=== PATIENT | male | born 1940 | race Caucasian/White ===

== ENCOUNTER 2017-06-05 10:57 | Emergency (ER) | payer OTHER, MEDICARE ==
[2017-06-05] MEDS ORDERED: OXYCODONE-ACETAMINOPHEN 5-325 MG TABLET PO ONE (11:24)
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
[2017-06-05 11:54] LABS: ABSOLUTE EOSINOPHILS # (AUTO) 0.3 10^3/uL (0.0-0.6); ABSOLUTE LYMPHOCYTES (AUTO) 1.5 10^3/uL (0.5-4.7); ABSOLUTE MONOCYTES (AUTO) 0.7 10^3/uL (0.1-1.4); ABSOLUTE NEUT (AUTO) 4.8 10^3/uL (1.7-8.2); BASOPHILS % (AUTO) 0.6 % (0-2); EOSINOPHILS % (AUTO) 4.4 % (0-6); HEMATOCRIT 46.2 % (37.9-51.0); HEMOGLOBIN 15.6 g/dL (13.5-17.0); LYMPHOCYTES % (AUTO) 20.8 % (13-45); MEAN CORPUSCULAR HEMOGLOBIN 27.9 pg (27.0-33.4); MEAN CORPUSCULAR HGB CONC 33.7 g/dL (32.0-36.0); MEAN CORPUSCULAR VOLUME 83 fl (80-97); MONOCYTES % (AUTO) 9.1 % (3-13); PLATELET COUNT 173 10^3/uL (150-450); RED BLOOD COUNT 5.58 10^6/uL (4.35-5.55); RED CELL DISTRIBUTION WIDTH 15.2 % (11.5-14.0); SEGMENTED NEUTROPHILS % (AUTO) 65.1 % (42-78); TOTAL CELLS COUNTED % (AUTO) 100 %; WHITE BLOOD COUNT 7.3 10^3/uL (4.0-10.5)
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
[2017-06-05 12:16] LABS: ALANINE AMINOTRANSFERASE 35 U/L (21-72); ALBUMIN 3.9 g/dL (3.5-5.0); ALKALINE PHOSPHATASE 88 U/L (38-126); ANION GAP 14 (5-19); ASPARTATE AMINO TRANSFERASE 20 U/L (17-59); BILIRUBIN,DIRECT 0.3 mg/dL (0.0-0.4); BILIRUBIN,TOTAL 1.5 mg/dL (0.2-1.3); BLOOD UREA NITROGEN 29 mg/dL (7-20); CALCIUM 9.7 mg/dL (8.4-10.2); CARBON DIOXIDE 28 mmol/L (22-30); CHLORIDE 97 mmol/L (98-107); GLUCOSE 144 mg/dL (75-110); POTASSIUM 3.2 mmol/L (3.6-5.0); SODIUM 138.6 mmol/L (137-145); TOTAL PROTEIN 6.5 g/dL (6.3-8.2)
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
[2017-06-05 13:16] VITALS: BP 107/59
== END 2017-06-05 13:16 | disposition home or self-care (01) ==
LOC: ER 10:57
DX: S32.039A Unspecified fracture of third lumbar vertebra, initial encounter for closed fracture (principal); V49.9XXA Car occupant (driver) (passenger) injured in unspecified traffic accident, initial encounter; I25.10 Atherosclerotic heart disease of native coronary artery without angina pectoris; I25.2 Old myocardial infarction; I10 Essential (primary) hypertension; J44.9 Chronic obstructive pulmonary disease, unspecified; E11.9 Type 2 diabetes mellitus without complications; Z95.1 Presence of aortocoronary bypass graft; Z87.891 Personal history of nicotine dependence; Z93.0 Tracheostomy status
CPT/HCPCS: 36415; 70450; 71020; 74176; 80053; 85025; 99284

== ENCOUNTER 2020-03-18 19:26 | Emergency (ER) | payer MEDICARE ==
--- NOTE | 2020-03-18 20:01 | ER Document Report ---
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 Has had cough and some shortness of breath but states he always has these. Denies abdominal pain reports some constipation. PHYSICAL EXAMINATION: Alert and oriented x3. Left hemiparesis is noted. Lung sounds are decreased bilaterally. Slightly congested cough is noted the patient does have tracheostomy. Heartbeat is slightly irregular. I have greeted and performed a rapid initial assessment of this patient. A comprehensive ED assessment and evaluation of the patient, analysis of test results and completion of medical decision making process will be conducted by an additional ED providers. TRAVEL OUTSIDE OF THE [place] IN LAST 30 DAYS: No - Related Data Allergies/Adverse Reactions: No Known Allergies Allergy (Unverified 07/11/11 18:03) Past Medical History - Past Medical History Cardiac Medical History: Reports: Hx Coronary Artery Disease, Hx Heart Attack - 2 SEVERAL YEARS, Hx Hypercholesterolemia, Hx Hypertension Pulmonary Medical History: Reports: Hx COPD Denies: Hx Asthma, Hx Tuberculosis Neurological Medical History: Denies: Hx Cerebrovascular Accident, Hx Seizures Endocrine Medical History: Reports: Hx Diabetes Mellitus Type 2 Renal/ Medical History: Denies: Hx Peritoneal Dialysis GI Medical History: Denies: Hx Hepatitis, Hx Hiatal Hernia, Hx Ulcer Infectious Medical History: Denies: Hx Hepatitis Past Surgical History: Reports: Hx Cardiac Catheterization, Hx Cardiac Surgery, Hx Coronary Artery Bypass Graft - 4 vessel, Hx Herniorrhaphy - 3x, Hx Open Heart Surgery - BYPASS X4 2001. Denies: Hx Pacemaker - Immunizations Hx Diphtheria, Pertussis, Tetanus Vaccination: Yes Physical Exam - Vital signs Vitals: Temp Pulse Resp BP Pulse Ox 97.7 F 72 20 136/75 H 94 03/18/20 19:47 03/18/20 19:47 03/18/20 19:47 03/18/20 19:47 03/18/20 19:47 Course - Vital Signs Vital signs: Temp Pulse Resp BP Pulse Ox 97.7 F 72 20 136/75 H 94 03/18/20 19:47 03/18/20 19:47 03/18/20 19:47 03/18/20 19:47 03/18/20 19:47
--- NOTE | 2020-03-18 23:01 | RADIOLOGY REPORT (SQ) ---
XR CHEST 1 VIEW CLINICAL STATEMENT: cough COMPARISON: 06/05/2017 FINDINGS: Heart is moderately enlarged. Status post median sternotomy. Tracheostomy tube is in place. Lungs are clear. No pleural effusions. IMPRESSION: No acute disease.
--- NOTE | 2020-03-18 23:06 | EKG REPORT ---
SEVERITY:- ABNORMAL ECG - SINUS RHYTHM PAIRED VENTRICULAR PREMATURE COMPLEXES PROBABLE LEFT ATRIAL ABNORMALITY NONSPECIFIC INTRAVENTRICULAR CONDUCTION DELAY INFERIOR INFARCT, AGE INDETERMINATE : Confirmed by: Daisy Francisco MD 18-Mar-2020 23:05:17
[2020-03-18 23:59] LABS: ABSOLUTE EOSINOPHILS # (AUTO) 0.1 10^3/uL (0.0-0.6); ABSOLUTE LYMPHOCYTES (AUTO) 1.5 10^3/uL (0.5-4.7); ABSOLUTE MONOCYTES (AUTO) 0.4 10^3/uL (0.1-1.4); ABSOLUTE NEUT (AUTO) 3.3 10^3/uL (1.7-8.2); BASOPHILS % (AUTO) 0.6 % (0-2); EOSINOPHILS % (AUTO) 1.7 % (0-6); HEMATOCRIT 41.8 % (37.9-51.0); HEMOGLOBIN 14.3 g/dL (13.5-17.0); LYMPHOCYTES % (AUTO) 27.8 % (13-45); MEAN CORPUSCULAR HEMOGLOBIN 28.9 pg (27.0-33.4); MEAN CORPUSCULAR HGB CONC 34.2 g/dL (32.0-36.0); MEAN CORPUSCULAR VOLUME 85 fl (80-97); PLATELET COUNT 178 10^3/uL (150-450); RED BLOOD COUNT 4.94 10^6/uL (4.35-5.55); RED CELL DISTRIBUTION WIDTH 15.9 % (11.5-14.0); SEGMENTED NEUTROPHILS % (AUTO) 61.9 % (42-78); TOTAL CELLS COUNTED % (AUTO) 100 %; WHITE BLOOD COUNT 5.4 10^3/uL (4.0-10.5)
[2020-03-19 00:26] LABS: ALBUMIN 3.5 g/dL (3.5-5.0); ALKALINE PHOSPHATASE 98 U/L (38-126); ANION GAP 12 (5-19); ASPARTATE AMINO TRANSFERASE 18 U/L (17-59); BILIRUBIN,DIRECT 0.3 mg/dL (0.0-0.4); BILIRUBIN,TOTAL 0.6 mg/dL (0.2-1.3); BLOOD UREA NITROGEN 16 mg/dL (7-20); CALCIUM 8.8 mg/dL (8.4-10.2); CARBON DIOXIDE 21 mmol/L (22-30); CHLORIDE 105 mmol/L (98-107); GLUCOSE 164 mg/dL (75-110); POTASSIUM 3.5 mmol/L (3.6-5.0)
--- NOTE | 2020-03-19 00:26 | ER Document Report ---
ED General - General Chief Complaint: Shortness Of Breath Stated Complaint: GENERAL WEAKNESS/PAIN ALL OVER Time Seen by Provider: 03/18/20 19:53 Notes: Patient is a 80-year-old male that comes emergency department for chief complaint of generalized body aches, generalized weakness, and feeling rundown. He states symptoms started earlier this evening. Patient denies fever, chest pain, abdominal pain, headache, vomiting, diarrhea, sore throat. He states he has a cough and some shortness of breath but this is baseline. He has a history of COPD, he has a tracheostomy present, he has a history of CAD with stents, CABG, CVA with chronic left-sided hemiparesis, type 2 diabetes, hypertension. He lives at home by himself, he states he got out of rehab about 3 months ago. He denies any obvious sick exposures, he has not been tested for COVID-19. TRAVEL OUTSIDE OF THE [place] IN LAST 30 DAYS: No - Related Data Allergies/Adverse Reactions: No Known Allergies Allergy (Unverified 07/11/11 18:03) Past Medical History - General Information source: Patient - Social History Smoking Status: Former Smoker Frequency of alcohol use: None Drug Abuse: None Lives with: Family Family History: Reviewed & Not Pertinent - Past Medical History Cardiac Medical History: Reports: Hx Coronary Artery Disease, Hx Heart Attack - 2 SEVERAL YEARS, Hx Hypercholesterolemia, Hx Hypertension Pulmonary Medical History: Reports: Hx COPD Denies: Hx Asthma, Hx Tuberculosis Neurological Medical History: Denies: Hx Cerebrovascular Accident, Hx Seizures Endocrine Medical History: Reports: Hx Diabetes Mellitus Type 2 Renal/ Medical History: Denies: Hx Peritoneal Dialysis GI Medical History: Denies: Hx Hepatitis, Hx Hiatal Hernia, Hx Ulcer Infectious Medical History: Denies: Hx Hepatitis Past Surgical History: Reports: Hx Cardiac Catheterization, Hx Cardiac Surgery, Hx Coronary Artery Bypass Graft - 4 vessel, Hx Herniorrhaphy - 3x, Hx Open Heart Surgery - BYPASS X4 2001. Denies: Hx Pacemaker - Immunizations Hx Diphtheria, Pertussis, Tetanus Vaccination: Yes Hx Pneumococcal Vaccination: 06/08/11 Review of Systems - Review of Systems Constitutional: See HPI EENT: No symptoms reported Cardiovascular: No symptoms reported Respiratory: No symptoms reported Gastrointestinal: No symptoms reported Genitourinary: No symptoms reported Male Genitourinary: No symptoms reported Musculoskeletal: See HPI Skin: No symptoms reported Hematologic/Lymphatic: No symptoms reported Neurological/Psychological: No symptoms reported Physical Exam - Vital signs Vitals: Temp Pulse Resp BP Pulse Ox 97.7 F 72 20 136/75 H 94 03/18/20 19:47 03/18/20 19:47 03/18/20 19:47 03/18/20 19:47 03/18/20 19:47 - Notes Notes: GENERAL: Patient is alert and talkative, somewhat disheveled, somewhat chronically ill-appearing HEAD: Normocephalic, atraumatic. EYES: Pupils equal, round, and reactive to light. Extraocular movements intact. ENT: Oral mucosa moist, tongue midline. Oropharynx unremarkable. Airway patent. NECK: Full range of motion. Supple. Tracheostomy in place without obvious complication. No lymphadenopathy. LUNGS: Clear to auscultation bilaterally, no wheezes, rales, or rhonchi. No respiratory distress. Non-tender chest wall. HEART: Regular rate and rhythm. No murmur ABDOMEN: Soft, non-tender. Non-distended. EXTREMITIES: Chronic left-sided weakness especially in the left arm, patient actually ambulates quite well, extremities otherwise unremarkable. BACK: no cervical, thoracic, lumbar midline tenderness. No saddle anesthesia, normal distal neurovascular exam. NEUROLOGICAL: Alert and oriented x3. Normal speech. Cranial nerves II through XII grossly intact. Strength 5/5 in all extremities. PSYCH: Normal affect, normal mood. SKIN: Warm, dry, normal turgor. No rashes or lesions noted. Course - Re-evaluation Re-evalutation: Patient is talkative, smiling, alert, chronically ill-appearing but otherwise well-appearing. Vital signs are unremarkable. CBC, chemistry nonspecific, troponin is not elevated, chest x-ray and EKG reviewed and unremarkable. BNP is 2980, I do not know the patient's baseline. No rales on exam, edema of the legs, or vascular congestion on chest x-ray. On reevaluation I attempted to discuss patient's work-up, however he is standing in the room, slightly restless, states that he does not want to be here anymore, states he just wants to go home. He denies any current symptoms. I offered COVID-19 testing, ambulation with pulse ox, I discussed potential options including watch caser. Patient states that he spoke to his daughter, he just wants to go home with them, and he wants to leave without any additional testing or interventions. Patient does state he will return if he develops any concerning or worsening symptoms. Patient stable and well-appearing at time of discharge. - Vital Signs Vital signs: Temp Pulse Resp BP Pulse Ox 97.9 F 80 16 129/82 H 87 L 03/19/20 01:01 03/18/20 23:05 03/19/20 01:01 03/19/20 01:01 03/19/20 01:01 - Laboratory Result Diagrams: 03/18/20 23:13 03/18/20 23:13 Laboratory results interpreted by me: 03/18/20 03/18/20 03/18/20 23:13 23:13 23:13 RDW 15.9 H Potassium 3.5 L Carbon Dioxide 21 L Glucose 164 H NT-Pro-B Natriuret Pep 2980 H Total Protein 6.0 L Urine Urobilinogen 03/19/20 00:05 RDW Potassium Carbon Dioxide Glucose NT-Pro-B Natriuret Pep Total Protein Urine Urobilinogen 2.0 H - EKG Interpretation by Me Additional EKG results interpreted by me: EKG shows sinus rhythm at a rate of 79, inferior Q waves, PVCs, QTc 441, normal axis. No T wave inversions or systemic changes in consecutive leads. Discharge - Discharge Clinical Impression: Generalized weakness, Myalgia Condition: Stable Disposition: HOME, SELF-CARE Additional Instructions: Your evaluation and work-up at this time does not show any obvious concerning findings. Your chest x-ray does not show pneumonia, your influenza test is negative, your urine does not show infection, your remaining work-up is reassuring. You have declined COVID-19 testing at this time. Please follow-up within 2 days with your primary care provider for additional management. Return if you worsen including difficulty breathing, chest pain, fevers, vomit ing, passing out, or any other concerning symptoms.
[2020-03-19 00:27] LABS: A TYPE INFLUENZA AG NEGATIVE (NEGATIVE); B INFLUENZA AG NEGATIVE (NEGATIVE)
[2020-03-19 00:38] LABS: TROPONIN I 0.014 ng/mL
[2020-03-19 00:55] LABS: APPEARANCE,URINE CLEAR; BILIRUBIN,URINE NEGATIVE (NEGATIVE); COLOR,URINE YELLOW; GLUCOSE, URINE NEGATIVE (NEGATIVE); KETONES,URINE NEGATIVE (NEGATIVE); LEUKOCYTE ESTERASE,URINE NEGATIVE (NEGATIVE); NITRITE,URINE NEGATIVE (NEGATIVE); PROTEIN,URINE NEGATIVE (NEGATIVE); URINE SPECIFIC GRAVITY 1.021
[2020-03-19 02:05] VITALS: BP 129/82
== END 2020-03-19 01:45 | disposition home or self-care (01) ==
LOC: ER 19:26
DX: R53.1 Weakness (principal); M79.10 Myalgia, unspecified site; R06.02 Shortness of breath; R53.83 Other fatigue; R05 Cough; J44.9 Chronic obstructive pulmonary disease, unspecified; Z93.0 Tracheostomy status; Z87.891 Personal history of nicotine dependence; I25.10 Atherosclerotic heart disease of native coronary artery without angina pectoris; I25.2 Old myocardial infarction; I10 Essential (primary) hypertension; E11.9 Type 2 diabetes mellitus without complications
CPT/HCPCS: 36415; 71045; 80053; 81001; 83880; 84484; 85025; 87040; 87804; 93005; 93010; 99285